=== PATIENT | male | born 1995 | race Caucasian/White ===

== ENCOUNTER 2021-05-02 12:21 | Outpatient (CLI) | payer OTHER ==
[~2021-05-02 12:21] MED LIST: Magnevist 469MG/ML 20 ML VIAL ONE
== END 2021-05-02 12:22 | disposition home or self-care (01) ==
LOC: BICMRI 12:21
PROVIDERS: ATTEND Psychiatry & Neurology Neurology
DX: G35 Multiple sclerosis (principal); R90.89 Other abnormal findings on diagnostic imaging of central nervous system
CPT/HCPCS: 70553; 72156; 72157; A9579